=== PATIENT | female | born 1980 | race Caucasian/White ===

== ENCOUNTER 2025-01-11 15:09 | Emergency (ER) | payer BC, SELFPAY ==
[2025-01-11 15:10] VITALS: BP 158/91; PULSE 103; RESP 19; TEMP 36.6; O2SAT 100; BMI 44.2
--- NOTE | 2025-01-11 15:22 | EDS_ITS ---
HPI HPI - Fall History of Present Illness Chief Complaint: Fall Detail of Chief Complaint: Complaining of right buttock and right hamstring pain. Informant: patient and family Occured/Mechanism Occurred: Today and Hours Mechanism/Context: Yes same level fall Usually ambulates: Without assistance Pain/Injury Pain Location: lower extremity Quality of Pain: Sharp Current Severity: Moderate Maximum Severity: Moderate Associated Symptoms Associated Symptoms: Negative for Parasthesias, Weakness, Loss of function, Inability to ambulate, Loss of consciousness or Amnesia Narrative Narrative: 45-year-old female history of diabetes and hypertension. Was roller skating and fell injuring her right buttock, hip and hamstring. Occurred 1 to 2 hours ago. Denies any other injuries. Did not hit her head. No LOC. No back chest or abdominal pain. No prior hip or femur surgery. Prior to the fall she was feeling fine. Worse pain with movement. She is able to stand. Prior similar symptoms: No Recent Illness/Hospitalization: No PFSH PFSH Medical History Diabetes Hypertension Medical History no medical history Home Medications ?Medication ?Instructions ?Recorded ?Last Taken ?Type hydrocodone-acetaminophen 5-325mg 1 tab PO Q4H PRN nohemi n 4 days #14 01/11/25 Unknown Rx 5mg-325mg tabs Allergy/AdvReac Type Severity Reaction Status Date / Time cephalexin (From Keflex) Allergy Hives Verified 01/11/25 15:15 Sulfa (Sulfonamide Allergy Swelling Verified 01/11/25 15:15 Antibiotics) Family History no significant family his Surgical History no surgical history Social History Smoking Status: Never smoker ROS ROS ED ROS Narrative Denies recent illness. Constitutional Constitutional ED: Denies chills or fever(s) Eyes Eyes: Denies blurry vision ENT ENT ED: Denies ear pain Cardiovascular Cardiovascular: Denies chest pain or palpitations Respiratory/Chest Respiratory/Chest: Denies cough or dyspnea Gastrointestinal Gastrointestinal: Denies abdominal pain Genitourinary Genitourinary ED: Denies dysuria or hematuria Musculoskeletal Musculoskeletal: Denies arthralgias or back pain Integumentary Denies abscess or Abrasions Neurologic Neurologic: Denies headache(s) Psychiatric Psychiatric: Denies anxiety or depression Endocrine Endocrinology: Denies polydipsia Hematologic/Lymphatic Hematologic/Lymphatic: Denies easy bleeding, easy bruising or lymphadenopathy Allergic/Immunologic Allergic/Immunologic ED: Denies mouth swelling, tongue swelling or urticaria EXAM Physical Exam Narrative Exam Narrative: 45-year-old female sitting upright in bed. Family at bedside. Vital signs are stable. She is afebrile. H EENT exam pupils round reactive light. Moist mucous membranes. No trauma to her face or scalp. Nontender no hematoma. Neck, C-spine and trachea nontender. Back and thoracic and lumbar spine nontender. No bruising. Lungs clear to auscultation bilaterally. Heart regular rhythm no murmur. Chest wall and ribs nontender. Abdomen soft nontender. Pelvic girdle intact. Moving all 4 extremities. Normal casing puller strength. Upper extremities are nontender normal range of motion. Left lower extremity is nontender normal range of motion. Normal dorsi plantarflexion. She has no reproducible pain to the right hip or femur. She has pain primarily along the right buttock and right hamstring. There is no obvious deficit. She has limited flexion extension of the hip due to pain she can flex and extend at the right ankle and has normal dorsi plantarflexion of the foot. Normal DP pulse. Normal sensation. Neurologically she is awake and alert. No focal motor deficits. GCS of 15. Const Vital Signs: 01/11/25 15:10 01/11/25 15:16 Temperature 98 F Temperature Source Oral Pulse Rate 103 H Respiratory Rate 19 H Respiratory Effort Normal Respiratory Depth Normal Respiratory Pattern Normal Blood Pressure 158/91 H Blood Pressure Mean 113 Pulse Ox 100 Oxygen Delivery Method Room Air Positive well nourished and well developed; Negative for cachectic, contractures or unkempt General Appearance ED: well developed and NAD; Negative for unkempt, cachectic or contractures Nutritional Appearance: Negative for cachectic HEENT Reports normocephalic atraumatic; Negative for trauma, contusion, hematoma or tenderness Eyes PERRL and EOMs intact bilaterally General Eye ED: Negative for pale conjunctiva, scleral icterus or other Neck full ROM, no lymphadenopathy and supple General: Negative for tenderness Chest Wall inspection of chest normal and palpation of chest normal Resp normal respiratory effort, no retractions and clear to auscultation bilaterally Effort and Inspection: Negative for pain with movement Auscultation: Negative for rales, rhonchi, wheezes or diminished lung sounds Cardio regular rate, regular rhythm, S1 normal heart sound, S2 normal heart sound and no murmurs Rate: Negative for bradycardia or tachycardic Rhythm: Negative for abnormal rhythm Bruits: Negative for other GI non-tender, non-distended and no masses Inspection: Negative for abdominal distention Auscultation: normoactive bowel sounds Palpation: soft; Negative for guarding or rebound tenderness present Back/Spine no CVA tenderness Cervical Spine: Negative for cervical spine tenderness Thoracic Spine / Upper Back: Negative for ROM limited Lumbar Spine / Lower Back: Negative for lumbar spinal tenderness Extremity Extremity Narrative: Tenderness right buttock and right hamstring. No obvious deficit. No bony deformity. No hip tenderness. No shortening or rotation. Increased pain with range of motion of the hip. Knee and right lower leg ankle and foot are nontender. Normal touch sensation. Normal dorsi plantarflexion. Normal DP pulse. Neuro oriented x3, CN's II-XII intact bilaterally and moves all extremities Sensorium / Orientation: alert, oriented to person, oriented to place and oriented to time; Negative for orientation impaired, confused, lethargic or stuporous Motor Exam: strength 5/5 throughout Psych mental status grossly normal and thought process normal Appearance: Negative for unkempt Attitude: No agitated Mood & Affect: Negative for depressed, anxious or tearful Skin Lesions: no lesions Rashes: no rashes Image ED - Body Diagram Man: 2 1. Tenderness right buttock and right hamstring. No deficit. No bony deformity. MDM MDM MDM Narrative Medical decision making narrative: 45-year-old female fell while rollerskating injuring her right buttock and hamstring. Suspect hamstring strain x-ray being obtained to rule out fracture or dislocation. IV morphine for pain and Zofran to prevent nausea. Repeat exam at 4:45 PM. Pain is much better after the morphine. I did roll the patient to her left there is no signs of bruising to her right hamstring. There is no soft tissue deficit I think it is a hamstring strain there is no signs of a tear. She and I discussed this. She be written for [place] for more severe pain otherwise Motrin and Tylenol. Outpatient follow-up as needed. History & Record Review Discussion w/independent historian: Patient and Family Radiography Diagnostic Testing: Clinical Impression(s) from Imaging Studies Hip/Pelvis X-Ray 01/11/25 15:30 IMPRESSION: No acute fracture. Reading Location: [id number] Right hip x-ray, 3 views, interpreted by myself shows no acute abnormality. No fracture. No dislocation. Discharge Plan Triage Chief Complaint: Fall ED Provider: Herbert Fagan Dx/Rx/DC Orders Clinical Impression: Hamstring muscle strain Instructions: ED Muscle Strain, Extremity Prescriptions: New hydrocodone-acetaminophen 5-325 mg tablet 1 tab PO Q4H PRN (Reason: pain) 4 Days Qty: 14 0RF Primary Care Provider: Jt Colon Referrals: Jt Colon MD [Primary Care Provider] - 10-14 Days if not better Activity Restrictions/Additional Instructions: X-ray of your hip looks good. Clinically this is a strained hamstring. I do not see any signs of a torn hamstring. Ice. Rest. Motrin and Tylenol for pain and inflammation. [place] for more severe pain. Slowly increase activity as tolerated. I would not do any strenuous activity, rollerskating or exercising until the pain is resolved for several days. This may take 1 to 2 weeks to start feeling a lot better. If not improving follow-up with your doctor they can get an MRI if needed but typically that is not needed for someone like this. Print Language: Citizen Of [place] Disposition Disposition: Home, Self Care
[2025-01-11] MEDS: Ondansetron 4 MG/2 ML Vial IV (15:28)
[2025-01-11] MEDS: morphine 8 MG/ML Syringe IV (15:29)
--- NOTE | 2025-01-11 15:30 | RAD_ITS ---
PROCEDURE: HIP, UNI W/ PELVIS 2-3 VIEWS REASON FOR EXAM: 45-year-old female, fell while roller skating, right hip pain. TECHNIQUE: Two views of the right hip with AP pelvis. COMPARISON: None. FINDINGS: No acute fracture. No suspicious bone lesion. 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 Metallic devices overlying the pelvis, likely tubal ligation devices. Ornamental jewelry overlying the lower pelvic soft tissues. Soft tissues are otherwise unremarkable. RAD/HIP, UNI W/ Pelvis 2-3 Views IMPRESSION: No acute fracture. Reading Location: [id number]
[2025-01-11 16:56] VITALS: BP 158/91; PULSE 103; RESP 19; TEMP 36.6; O2SAT 100
== END 2025-01-11 16:56 | disposition home or self-care (01) ==
PROVIDERS: Emergency Provider Emergency Medicine; PCP Internal Medicine; Visit Provider Emergency Medicine
DX: S76.311A Strain of muscle, fascia and tendon of the posterior muscle group at thigh level, right thigh, initial encounter (principal); E11.9 Type 2 diabetes mellitus without complications; W18.30XA Fall on same level, unspecified, initial encounter; I10 Essential (primary) hypertension; Y93.51 Activity, roller skating (inline) and skateboarding
CPT/HCPCS: 73502; 96374; 96375; 99285; A4216; J2405